=== PATIENT | female | born 1940 | race Caucasian/White ===

== ENCOUNTER → 2017-03-26 | Outpatient (CLI) | payer MEDICARE, BC ==
[2017-03-26 07:23] LABS: CH 27.6; CHCM 31.6; HCT 42.3 % (34.0-46.0); HDW 2.85; HGB 13.4 gm/dL (11.4-16.0); Hypochromasia Slight; MCH 27.8 pg (25.0-35.0); MCHC 31.7 g/dL (31.0-37.0); MCV 87.8 fL (80.0-100.0); Mean Platelet Volume 6.2; RBC 4.82 m/uL (3.80-5.40); RDW 14.2 % (11.5-15.5); WBC 6.6 k/uL (3.8-10.6)
[2017-03-26 07:52] LABS: ALT 21 U/L (9-52); AST 25 U/L (14-36); Alkaline Phosphatase 135 U/L (38-126); Anion Gap 12 mmol/L; Blood Urea Nitrogen 11 mg/dL (7-17); Calcium 9.6 mg/dL (8.4-10.2); Carbon Dioxide 26 mmol/L (22-30); Chloride 107 mmol/L (98-107); Cholesterol 183 mg/dL (<200); Glucose 89 mg/dL (74-99); HDL Cholesterol 93 mg/dL (40-60); Non-African American GFR(MDRD) >60 (>60 ml/min/1.73 sqM); Potassium 4.6 mmol/L (3.5-5.1); Sodium 145 mmol/L (137-145); Total Bilirubin 0.9 mg/dL (0.2-1.3); Total Protein 7.8 g/dL (6.3-8.2); Triglycerides 98 mg/dL (<150)
[2017-03-26 12:21] LABS: Hemoglobin A1C 5.7 % (4.2-6.1)
== END | disposition home or self-care (01) ==
LOC: LABWHC1 06:32
PROVIDERS: ATTEND Internal Medicine Critical Care Medicine
DX: E55.9 Vitamin D deficiency, unspecified (principal); E27.40 Unspecified adrenocortical insufficiency; I10 Essential (primary) hypertension; E11.9 Type 2 diabetes mellitus without complications
CPT/HCPCS: 36415; 80053; 80061; 82306; 83036; 84439; 84443; 85027

== ENCOUNTER 2017-09-12 07:24 | Day surgery (SDC) | payer MEDICARE, BC ==
[2017-09-10 17:04] VITALS: BMI 26.8
[~2017-09-12 07:24] MED LIST: LACTATED RINGERS 1,000 ML IV SCH; LIDOCAINE 1% 20 ML VIAL (10MG/ML) FOR IV START INTRADERMA PRN
[2017-09-12 07:54] VITALS: TEMP 98.2
[2017-09-12 08:17] LABS: Glucose,Whole Blood 85 mg/dL (75-99)
[2017-09-12] MEDS ORDERED: PROPOFOL 10 MG/ML 20 ML VIAL IV ONE (08:41)
[2017-09-12] MEDS ORDERED: LIDOCAINE 1% INJ 10MG/ML (20 ML MDV) ONE (08:41)
--- NOTE | 2017-09-12 09:31 | P.PCN ---
Date of Procedure: 09/12/17 Procedure(s) Performed: Procedure: Esophagogastroduodenoscopy and biopsy. Preoperative diagnosis: Chronic reflux symptoms currently having nocturnal symptoms despite therapy. Postoperative diagnosis: 1. Hiatal hernia with no obvious esophagitis or complicated reflux disease. 2. S/P prior Alicia fundoplication. 3. Antral gastritis with multiple gastric body polyps. 4. Biopsies obtained from the duodenum, antrum, gastric body polyps and esophagus. Preparation sedation: Was provided by anesthesia. Brief clinical history: The patient is a 77-year-old female who was evaluated in the office last month because of ongoing issues with reflux including episodes of nocturnal reflux while on twice a day PPI therapy. She had a Alicia fundoplication around 10 years ago and has done well off medications for 1-2 years then was back on treatment because of recurrent symptoms. She has increased PPI to twice a day for the last year or so. She does have occasional belching. Denied dysphagia or other alarm symptoms. She had recent episodes of epigastric pain and nocturnal sourness in her throat. This evaluation is to assess for esophagitis, complicated reflux disease or other pathology. Procedure: With the patient on her left lateral decubitus position and after informed consent and adequate sedation, I passed the Olympus-GIF 160 video upper endoscope through the cricopharyngeus down the esophagus. There was pooling of secretions and pill remnants in the esophagus but there was no mechanical obstruction or strictures. GE junction was around 32-33 cm from the incisors and there was a hiatal hernia measuring around 4 cm or so. No strictures or Cox's esophagus. The endoscope was then passed into the stomach which was insufflated with air and inspected in detail including the retroflex view in the cardia. The prior Alicia fundoplication was noted but that did not appear tight. There was numerous small and diminutive polyps in the gastric body consistent with hyperplastic/regenerative/fundic polyps and there was mottling and erythema in the antrum but no ulcers or gastric outlet obstruction. Pyloric channel, duodenal bulb, post bulbar area and descending duodenum appeared within normal limits. I obtained biopsies from the duodenum, antrum, gastric body polyps and esophagus then the endoscope was withdrawn. The patient tolerated the procedure well. Plan: I summarized the findings to the patient. Will await biopsy results. In the meantime she will continue antireflux diet and measures including elevation of the head of the bed or using a wedge under the mattress and to continue twice a day PPI. She will follow-up in the office this month as planned and we would make further plans based on her course and biopsy results. We will keep you updated on her progress.
[2017-09-12 09:48] VITALS: BP 149/83; PULSE 89; RESP 16
[2017-09-12 09:48] LABS: Glucose,Whole Blood 77 mg/dL (75-99)
== END 2017-09-12 10:10 | disposition home or self-care (01) ==
LOC: ORWHC2ENDO 07:24
DX: K29.60 Other gastritis without bleeding (principal); I78.8 Other diseases of capillaries; K31.7 Polyp of stomach and duodenum; K21.0 Gastro-esophageal reflux disease with esophagitis; K44.9 Diaphragmatic hernia without obstruction or gangrene; E11.9 Type 2 diabetes mellitus without complications; J44.9 Chronic obstructive pulmonary disease, unspecified; I10 Essential (primary) hypertension; M19.90 Unspecified osteoarthritis, unspecified site; E27.40 Unspecified adrenocortical insufficiency; Z79.52 Long term (current) use of systemic steroids; Z79.899 Other long term (current) drug therapy; Z88.1 Allergy status to other antibiotic agents; Z88.0 Allergy status to penicillin; Z88.2 Allergy status to sulfonamides
CPT/HCPCS: 88305; 88342; 43239; J2001; J2704

== ENCOUNTER → 2019-04-03 | Outpatient (CLI) | payer MEDICARE, BC ==
[2019-04-03 07:21] LABS: Anisocytosis Slight; Basophils # (A) 0.2 k/uL (0-0.2); Basophils % (A) 2 %; Eosinophils # (A) 0.5 k/uL (0-0.7); Eosinophils % (A) 5 %; HCT 39.6 % (34.0-46.0); HGB 12.4 gm/dL (11.4-16.0); Hypochromasia Slight; Lymphocytes # (A) 3.3 k/uL (1.0-4.8); Lymphocytes % (A) 35 %; MCH 26.3 pg (25.0-35.0); MCHC 31.2 g/dL (31.0-37.0); MCV 84.3 fL (80.0-100.0); Mean Platelet Volume 6.6; Monocytes # (A) 0.7 k/uL (0-1.0); Monocytes % (A) 7 %; Neutrophils # (A) 4.6 k/uL (1.3-7.7); Neutrophils % (A) 48 %; Platelet Count 456 k/uL (150-450); RDW 16.3 % (11.5-15.5); WBC 9.5 k/uL (3.8-10.6)
[2019-04-03 17:18] LABS: Vitamin D 25 Hydroxy 41.8 ng/mL (30.0-100.0)
[2019-04-03 17:22] LABS: Albumin 4.3 g/dL (3.80-4.90); Albumin/Globulin Ratio 2.39 (1.60-3.17); Anion Gap 10.6 mmol/L (4.00-12.00); Bilirubin, Conjugated 0.2 mg/dL (0.20-0.40); Bilirubin,Unconjugated 0.4 mg/dL; Calcium 10.1 mg/dL (8.7-10.3); Carbon Dioxide 26.4 mmol/L (21.6-31.8); Globulin 1.8 g/dL (1.6-3.3); LDL Cholesterol,Calculated 89.4 mg/dL (0.0-131.0); Potassium 4.3 mmol/L (3.5-5.5); Total Bilirubin 0.6 mg/dL (0.2-1.2); Total Protein 6.1 g/dL (6.2-8.2); VLDL Calculation 16.6 mg/dL (5.00-40.00)
[2019-04-03 17:29] LABS: T4, Free (Free Thyroxine) 1.2 ng/dL (0.80-1.80)
[2019-04-03 17:32] LABS: Immunoglobulin E 97.4 IU/mL (0.00-114.00)
[2019-04-03 19:12] LABS: Hemoglobin A1C 6.3 % (4.0-6.0)
[2019-04-04 11:57] LABS: IgG Subclass 4 18.6 mg/dL (3.0-175.0)
== END ==
LOC: LABWHC1 06:36
PROVIDERS: ATTEND Internal Medicine Critical Care Medicine
DX: I10 Essential (primary) hypertension (principal); D80.1 Nonfamilial hypogammaglobulinemia; E27.40 Unspecified adrenocortical insufficiency; E55.9 Vitamin D deficiency, unspecified; Z79.899 Other long term (current) drug therapy; R53.83 Other fatigue
CPT/HCPCS: 36415; 80053; 80061; 82248; 82306; 82533; 82784; 82785; 82787; 83036; 84439; 84443; 85025

== ENCOUNTER → 2019-07-20 | Outpatient (CLI) | payer MEDICARE, BC ==
[~2019-07-20] MED LIST changes: +ACETAMINOPHEN TAB 325 MG TAB PO NR; +IMMUNE GLOBULIN IV NR; -LACTATED RINGERS 1,000 ML IV SCH; -LIDOCAINE 1% 20 ML VIAL (10MG/ML) FOR IV START INTRADERMA PRN; +SODIUM CHLORIDE 0.9% 500 ML 500 ML in EMPTY BAG 1 BAG IV PRN; +diphenhydrAMINE 25 MG CAP PO NR
[2019-07-20 09:15] VITALS: TEMP 97.6
[2019-07-20 12:56] VITALS: BP 130/74; PULSE 73; RESP 16
== END | disposition home or self-care (01) ==
LOC: PROCWHC3 08:53
PROVIDERS: ATTEND Internal Medicine Critical Care Medicine
DX: D83.8 Other common variable immunodeficiencies (principal)
CPT/HCPCS: 96365; 96366; J1566 ×2

== ENCOUNTER → 2019-08-17 | Outpatient (CLI) | payer MEDICARE, BC ==
[~2019-08-17] MED LIST changes: -ACETAMINOPHEN TAB 325 MG TAB PO NR; +ACETAMINOPHEN TAB 325 MG TAB PO ONE; -diphenhydrAMINE 25 MG CAP PO NR; +diphenhydrAMINE 25 MG CAP PO ONE
[2019-08-17 09:30] VITALS: TEMP 97.8
[2019-08-17 11:41] VITALS: RESP 16
[2019-08-17 12:14] VITALS: BP 132/63; PULSE 72
== END | disposition home or self-care (01) ==
LOC: PROCWHC3 09:17
PROVIDERS: ATTEND Internal Medicine Critical Care Medicine
DX: D83.8 Other common variable immunodeficiencies (principal)
CPT/HCPCS: 96365; 96366; J1566 ×2

== ENCOUNTER → 2019-09-17 | Outpatient (CLI) | payer MEDICARE, BC ==
[~2019-09-17] MED LIST changes: +IMMUNE GLOBULIN (GAMMAGARD) 20 GM in EMPTY BAG 1 BAG IV ONE; +IMMUNE GLOBULIN (GAMMAGARD) 5 GM in EMPTY BAG 1 BAG IV ONE; -IMMUNE GLOBULIN IV NR
[2019-09-17 09:26] VITALS: TEMP 97.7
[2019-09-17 10:44] VITALS: BP 125/78; PULSE 76; RESP 16
== END | disposition home or self-care (01) ==
LOC: PROCWHC3 09:12
PROVIDERS: ATTEND Internal Medicine Critical Care Medicine
DX: D83.8 Other common variable immunodeficiencies (principal)
CPT/HCPCS: 96365; 96366; J1569

== ENCOUNTER → 2019-09-18 | Outpatient (CLI) | payer MEDICARE, BC | END | disposition home or self-care (01) | LOC: CPPFTMAIN 10:18 | PROVIDERS: ATTEND Internal Medicine Critical Care Medicine | DX: R94.2 Abnormal results of pulmonary function studies (principal) | CPT/HCPCS: 94060; 94726; 94729 ==

== ENCOUNTER → 2019-11-10 | Outpatient (CLI) | payer MEDICARE, BC ==
[~2019-11-10] MED LIST changes: +ACETAMINOPHEN TAB 325 MG TAB PO NR; -ACETAMINOPHEN TAB 325 MG TAB PO ONE; +IMMUNE GLOBULIN (GAMMAGARD) 20 GM in EMPTY BAG 1 BAG IV NR; -IMMUNE GLOBULIN (GAMMAGARD) 20 GM in EMPTY BAG 1 BAG IV ONE; +IMMUNE GLOBULIN (GAMMAGARD) 5 GM in EMPTY BAG 1 BAG IV NR; -IMMUNE GLOBULIN (GAMMAGARD) 5 GM in EMPTY BAG 1 BAG IV ONE; +diphenhydrAMINE 25 MG CAP PO NR; -diphenhydrAMINE 25 MG CAP PO ONE
[2019-11-10 09:26] VITALS: RESP 16; TEMP 98.5
[2019-11-10 10:25] VITALS: BP 135/83; PULSE 75
== END | disposition home or self-care (01) ==
LOC: PROCWHC3 09:12
PROVIDERS: ATTEND Internal Medicine Critical Care Medicine
DX: D83.8 Other common variable immunodeficiencies (principal)
CPT/HCPCS: 96365; 96366; J1569 ×2

== ENCOUNTER → 2019-12-17 | Outpatient (CLI) | payer MEDICARE, BC ==
[2019-12-17 09:49] VITALS: BP 109/74; PULSE 75; RESP 16; TEMP 98.1
== END | disposition home or self-care (01) ==
LOC: PROCWHC3 08:28
PROVIDERS: ATTEND Internal Medicine Critical Care Medicine
DX: D83.8 Other common variable immunodeficiencies (principal)
CPT/HCPCS: 96365; 96366; J1569 ×2

== ENCOUNTER → 2020-01-14 | Outpatient (CLI) | payer MEDICARE, BC ==
[2020-01-14 08:52] VITALS: TEMP 97.5
[2020-01-14 09:59] VITALS: BP 120/58; PULSE 76; RESP 18
== END | disposition home or self-care (01) ==
LOC: PROCWHC3 08:46
PROVIDERS: ATTEND Internal Medicine Critical Care Medicine
DX: D83.8 Other common variable immunodeficiencies (principal)
CPT/HCPCS: 96365; 96366; J1569 ×2

== ENCOUNTER → 2020-03-03 | Outpatient (CLI) | payer MEDICARE, BC ==
[~2020-03-03] MED LIST changes: -IMMUNE GLOBULIN (GAMMAGARD) 20 GM in EMPTY BAG 1 BAG IV NR; +IMMUNE GLOBULIN (GAMMAGARD) 20 GM in EMPTY BAG 1 BAG IV ONE; -IMMUNE GLOBULIN (GAMMAGARD) 5 GM in EMPTY BAG 1 BAG IV NR; +IMMUNE GLOBULIN (GAMMAGARD) 5 GM in EMPTY BAG 1 BAG IV ONE
[2020-03-03 08:46] VITALS: TEMP 98
[2020-03-03 09:50] VITALS: RESP 16
[2020-03-03 10:12] VITALS: BP 115/73; PULSE 71
== END | disposition home or self-care (01) ==
LOC: PROCWHC3 08:13
PROVIDERS: ATTEND Internal Medicine Critical Care Medicine
DX: D83.8 Other common variable immunodeficiencies (principal)
CPT/HCPCS: 96365; 96366; J1569 ×2

== ENCOUNTER → 2020-03-31 | Outpatient (CLI) | payer MEDICARE, BC ==
[2020-03-31 08:18] VITALS: RESP 16; TEMP 97.9
[2020-03-31 09:15] VITALS: PULSE 85
[2020-03-31 09:46] VITALS: BP 118/78
== END | disposition home or self-care (01) ==
LOC: PROCWHC3 08:09
PROVIDERS: ATTEND Internal Medicine Critical Care Medicine
DX: D83.8 Other common variable immunodeficiencies (principal)
CPT/HCPCS: 96365; 96366; J1569 ×2

== ENCOUNTER → 2020-06-23 | Outpatient (CLI) | payer MEDICARE, BC ==
[2020-06-23 07:59] LABS: Anisocytosis Slight; Basophils # (A) 0.1 k/uL (0-0.2); Basophils % (A) 1 %; Eosinophils # (A) 0.2 k/uL (0-0.7); Eosinophils % (A) 2 %; HCT 41.9 % (34.0-46.0); HGB 13.2 gm/dL (11.4-16.0); Lymphocytes # (A) 3.3 k/uL (1.0-4.8); Lymphocytes % (A) 30 %; MCH 27.1 pg (25.0-35.0); MCHC 31.5 g/dL (31.0-37.0); Mean Platelet Volume 6.8; Monocytes # (A) 0.7 k/uL (0-1.0); Monocytes % (A) 6 %; Neutrophils # (A) 6.6 k/uL (1.3-7.7); Neutrophils % (A) 60 %; Platelet Count 331 k/uL (150-450); RBC 4.88 m/uL (3.80-5.40); RDW 16.4 % (11.5-15.5); WBC 11.1 k/uL (3.8-10.6)
[2020-06-23 12:37] LABS: T4, Free (Free Thyroxine) 1.2 ng/dL (0.80-1.80)
[2020-06-23 12:54] LABS: African American GFR (CKD) 81.8 (60.0-200.0); Albumin 4.5 g/dL (3.80-4.90); Albumin/Globulin Ratio 2.05 (1.60-3.17); Anion Gap 13.3 mmol/L (4.00-12.00); BUN/Creat Ratio 18.75 Ratio (12.00-20.00); Calcium 9.7 mg/dL (8.7-10.3); Carbon Dioxide 26.7 mmol/L (21.6-31.8); Chol/HDL Ratio 1.95; Globulin 2.2 g/dL (1.6-3.3); LDL Cholesterol,Calculated 97.8 mg/dL (0.0-131.0); Non-African American GFR(CKD) 70.6 (60.0-200.0); Potassium 4.2 mmol/L (3.5-5.5); Total Bilirubin 0.6 mg/dL (0.3-1.2); Total Protein 6.7 g/dL (6.2-8.2); VLDL Calculation 15.2 mg/dL (5.00-40.00)
[2020-06-23 15:49] LABS: Hemoglobin A1C 6.2 % (4.0-6.0)
== END | disposition home or self-care (01) ==
LOC: LABWHC1 07:01
PROVIDERS: ATTEND Internal Medicine Critical Care Medicine
DX: E11.9 Type 2 diabetes mellitus without complications (principal); E27.40 Unspecified adrenocortical insufficiency; E55.9 Vitamin D deficiency, unspecified
CPT/HCPCS: 36415; 80053; 80061; 82306; 83036; 84439; 84443; 85025

== ENCOUNTER 2020-08-23 09:11 | Day surgery (SDC) | payer MEDICARE, BC ==
[2020-08-18 15:52] VITALS: BMI 27.8
[~2020-08-23 09:11] MED LIST changes: -ACETAMINOPHEN TAB 325 MG TAB PO NR; +ALBUTEROL NEB (CONC) 2.5 MG/0.5 ML INHALATION ONE; +ATROPINE SULFATE 0.4 MG/ML 1 ML VIAL IM ONE; +DEXAMETHASONE SOD PHOSPHATE 10 MG/ML 1 ML VIAL IV ONE; -IMMUNE GLOBULIN (GAMMAGARD) 20 GM in EMPTY BAG 1 BAG IV ONE; -IMMUNE GLOBULIN (GAMMAGARD) 5 GM in EMPTY BAG 1 BAG IV ONE; +LACTATED RINGERS 1,000 ML IV SCH; +LIDOCAINE 1% (10MG/ML) FOR IV START INTRADERMA PRN; +LIDOCAINE 2% (PF) 20 MG/ML 5 ML VIAL INHALATION ONE; +LIDOCAINE VISCOUS 300 MG/15 ML CUP MUCOUS MEM ONE; +ONDANSETRON 4 MG/2 ML VIAL IVP ONE; +SODIUM CHLORIDE 0.9% 1,000 ML IV SCH; -SODIUM CHLORIDE 0.9% 500 ML 500 ML in EMPTY BAG 1 BAG IV PRN; -diphenhydrAMINE 25 MG CAP PO NR
[2020-08-23 10:08] VITALS: TEMP 97.8
[2020-08-23 10:31] LABS: Glucose,Whole Blood 91 mg/dL (75-99)
[2020-08-23] MEDS ORDERED: fentaNYL (PF) 50 MCG/ML 2 ML AMP ONE (11:00)
[2020-08-23] MEDS ORDERED: LIDOCAINE 1% INJ 10MG/ML (20 ML MDV) ONE (11:00)
[2020-08-23] MEDS ORDERED: PROPOFOL 10 MG/ML 20 ML VIAL IV ONE (11:00)
[2020-08-23] MEDS ORDERED: LIDOCAINE 2% INJ 20 MG/ML INTRATRACH ONE (11:15)
[2020-08-23 11:23] VITALS: PULSE 102; RESP 20
[2020-08-23 11:42] VITALS: BP 133/66
--- NOTE | 2020-08-23 17:48 | PCN ---
PROCEDURE NOTE PULMONARY/CRITICAL CARE PROCEDURE NOTE: PROCEDURE: Bronchoscopy, airway examination, therapeutic lavage, bronchoalveolar lavage, right middle lobe. OPERATORS: 1. Dr. Frank. 2. Robby Estrada. PREOPERATIVE DIAGNOSIS: Tracheomalacia, severe asthma. POSTOPERATIVE DIAGNOSIS: Tracheomalacia, severe asthma. There was informed consent. There was universal timeout. The patient's procedure took place in room #1. PALEOLOGY PROFESSOR provided general anesthesia. PROCEDURE DESCRIPTION: After the patient was adequately sedated and being fully monitored, the bronchoscope was inserted through the right nostril. It passed through the right nasopharynx into the oropharynx. The hypopharynx was identified. The anterior commissure, true cords, false cords, arytenoids, piriform sinuses, valleculae and epiglottis were all evaluated. One abnormality noted was a benign-appearing nodule on the right arytenoid area. A picture was taken. We will make sure that she gets a referral to [facility]. The glottic opening was topicalized. The bronchoscope was pushed through the glottic opening into the trachea. There was a significant amount of tracheomalacia. Tracheal carl was sharp. The right and left mainstem were topicalized. The right upper lobe and its 3 segments, right middle lobe and its 2 segments, right lower lobe and its 5 segments, left upper lobe and its 2 segments, lingula and its 2 segments, and left lower lobe and its 4 segments all had similar findings of very mild bronchitic changes. There was mild hyperemia and erythema of the airways. There was some vascular prominence. There was not much in the way of secretions. There was no dominant mass or tumor. The bronchoscope was wedged into the right middle lobe. Thirty mL was recovered. The additional secretions were cleared and the bronchoscope was withdrawn. The patient tolerated the procedure well and will be recovered. MMODL / IJN: [id number] /
== END 2020-08-23 12:00 | disposition home or self-care (01) ==
LOC: ORWHC2ENDO 09:11
PROVIDERS: ATTEND Internal Medicine Critical Care Medicine
DX: J45.901 Unspecified asthma with (acute) exacerbation (principal); J44.9 Chronic obstructive pulmonary disease, unspecified; J39.8 Other specified diseases of upper respiratory tract; E11.9 Type 2 diabetes mellitus without complications; E27.40 Unspecified adrenocortical insufficiency; D80.1 Nonfamilial hypogammaglobulinemia; I10 Essential (primary) hypertension; K21.9 Gastro-esophageal reflux disease without esophagitis; Z86.14 Personal history of Methicillin resistant Staphylococcus aureus infection; Z80.0 Family history of malignant neoplasm of digestive organs; Z80.42 Family history of malignant neoplasm of prostate; Z80.1 Family history of malignant neoplasm of trachea, bronchus and lung; Z90.49 Acquired absence of other specified parts of digestive tract; Z98.891 History of uterine scar from previous surgery; Z98.890 Other specified postprocedural states; Z98.49 Cataract extraction status, unspecified eye; Z79.52 Long term (current) use of systemic steroids; Z79.51 Long term (current) use of inhaled steroids; Z79.899 Other long term (current) drug therapy; Z79.84 Long term (current) use of oral hypoglycemic drugs; Z88.2 Allergy status to sulfonamides; Z88.0 Allergy status to penicillin; Z88.1 Allergy status to other antibiotic agents; Z88.8 Allergy status to other drugs, medicaments and biological substances; M19.90 Unspecified osteoarthritis, unspecified site; Z87.01 Personal history of pneumonia (recurrent)
CPT/HCPCS: 87798 ×3; 87496; 87498; 87529; 88108; 88305; 87252; 87502; 87634; 87070; 87205; 87116; 87102; 87077; 87186; 87206; 31624; J2001 ×2; J0461; J3010; J2704

== ENCOUNTER → 2021-06-22 | Outpatient (CLI) | payer MEDICARE, BC ==
[2021-06-22 11:12] LABS: Basophils # (A) 0.18 X 10*3/uL (0.00-0.10); Basophils % (A) 1.8 %; Eosinophils # (A) 0.39 X 10*3/uL (0.04-0.35); Eosinophils % (A) 3.9 %; HCT 39.9 % (37.2-46.3); HGB 12.5 g/dL (12.0-15.0); Lymphocytes # (A) 3.97 X 10*3/uL (0.90-5.00); Lymphocytes % (A) 39.5 %; MCHC 31.3 g/dL (32.0-37.0); MCV 89.3 fL (80.0-97.0); Mean Platelet Volume 9.3 fL (9.5-12.2); Monocytes # (A) 0.98 X 10*3/uL (0.20-1.00); Monocytes % (A) 9.8 %; Neutrophils % (A) 44.7 %; Platelet Count 425 X 10*3/uL (140-440); RBC 4.47 X 10*6/uL (4.10-5.20); RDW 15.8 % (11.5-14.5); WBC 10.05 X 10*3/uL (4.50-10.00)
[2021-06-22 13:05] LABS: Hemoglobin A1C 5.9 % (4.0-6.0)
[2021-06-22 15:12] LABS: African American GFR (CKD) 81.3 (60.0-200.0); Albumin 4.7 g/dL (3.80-4.90); Albumin/Globulin Ratio 1.96 (1.60-3.17); Anion Gap 10.8 mmol/L (4.00-12.00); Calcium 9.8 mg/dL (8.7-10.3); Carbon Dioxide 26.2 mmol/L (21.6-31.8); Chol/HDL Ratio 1.63; Globulin 2.4 g/dL (1.6-3.3); LDL Cholesterol,Calculated 47.4 mg/dL (0.0-131.0); Non-African American GFR(CKD) 70.1 (60.0-200.0); Potassium 4.2 mmol/L (3.5-5.5); Total Bilirubin 0.5 mg/dL (0.3-1.2); Total Protein 7.1 g/dL (6.2-8.2); VLDL Calculation 13.6 mg/dL (5.00-40.00)
[2021-06-22 15:21] LABS: T4, Free (Free Thyroxine) 1.3 ng/dL (0.80-1.80)
== END | disposition home or self-care (01) ==
LOC: LABWHC1 07:00
PROVIDERS: ATTEND Internal Medicine Critical Care Medicine
DX: E27.40 Unspecified adrenocortical insufficiency (principal); D83.9 Common variable immunodeficiency, unspecified
CPT/HCPCS: 36415; 80053; 80061; 82306; 82533; 82787; 83036; 84439; 84443; 85025

== ENCOUNTER → 2022-05-31 | Outpatient (CLI) | payer MEDICARE, BC ==
--- NOTE | 2022-05-31 15:49 | US ---
EXAMINATION TYPE: US venous doppler duplex LE RT DATE OF EXAM: 05/31/2022 12:53 PM COMPARISON: NONE CLINICAL HISTORY: 82-year-old female I80.9PHLEBITIS AND THROMBOPHLEBITIS. Ankle redness, no history o f DVT SIDE PERFORMED: Right TECHNIQUE: The lower extremity deep venous system is examined utilizing real time linear array sonog kim with graded compression, doppler sonography and color-flow sonography. FINDINGS: VESSELS IMAGED: Common Femoral Vein Deep Femoral Vein Greater Saphenous Vein * Femoral Vein Popliteal Vein Small Saphenous Vein * Proximal Calf Veins Peroneal veins Posterior tibial veins (* superficial vessels) Right Leg: Negative for DVT IMPRESSION: No evidence for DVT within the right lower extremity.
== END | disposition home or self-care (01) ==
LOC: RADUSWWP 12:30
PROVIDERS: ATTEND Orthopaedic Surgery
DX: M17.11 Unilateral primary osteoarthritis, right knee (principal); M25.461 Effusion, right knee; I80.9 Phlebitis and thrombophlebitis of unspecified site; E11.9 Type 2 diabetes mellitus without complications; M25.571 Pain in right ankle and joints of right foot; L03.115 Cellulitis of right lower limb